=== PATIENT | female | born 1970 | race Caucasian/White ===

== ENCOUNTER 2023-05-03 16:24 | Outpatient (OUT) | payer BC, SELFPAY ==
--- NOTE | 2023-05-03 | XR_ITS ---
The [address] [address] Patient Name: CHU PAINTINGER MRN: [id number] date: 1970 Sex: F Assigned Patient Location: [facility] Current Patient Location: Accession/Order Number: [id number] Exam Date: 05/03/2023 16:30 Report Date: 05/04/2023 07:37 At the request of: VI BERGER Procedure: XR cervical spine 2-3V EXAMINATION: XR cervical spine 2-3V HISTORY: Cervical disc disease COMPARISON: 10/27/2021 FINDINGS: BONES: Reversal of normal cervical lordosis. Dextrocurvature centered at C3-C4. Mild anterior degenerative spondylosis most significant C5-C7 DISC SPACES: Mild disc space narrowing C6-C7 PARASPINOUS: Negative. No paraspinous abnormality is seen. OTHER: Negative. XR/XR cervical spine 2-3V IMPRESSION: Mild degenerative changes with reversal of cervical lordosis Electronically authenticated by: JACEY DANIELLE Date: 05/04/2023 07:37
== END 2023-05-03 16:25 | disposition home or self-care (01) ==
LOC: RAD 16:28
PROVIDERS: PCP Nurse Practitioner Family; Visit Provider Nurse Practitioner Family
DX: M50.90 Cervical disc disorder, unspecified, unspecified cervical region (principal)
CPT/HCPCS: 72040